=== PATIENT | female | born 1980 | race Caucasian/White ===

== ENCOUNTER 2016-09-14 08:12 | Day surgery (SDC) | payer BC ==
[~2016-09-14 08:12] MED LIST: Acetaminophen TAB* 325 MG PO PRN; Buffered Lidocaine 0.9% SYRIN* 5 ML/SYR SYRINGE INTRADERM ONE
[2016-09-14] MEDS ORDERED: Midazolam* 1 MG/ML 2 ML VIAL (2 MG) ONE ×2 (09:25→09:36)
[2016-09-14 09:57] VITALS: BP 105/56
[2016-09-14] MEDS ORDERED: Buffered Lidocaine 0.9% SYRIN* 5 ML/SYR SYRINGE ONE (14:50)
[2016-09-14] MEDS ORDERED: Lidocaine 1% MPF* 2 ML VIAL ONE (14:50)
[2016-09-14] MEDS ORDERED: Povidone Iodine 5% OPTH* 30 ML BTL ONE (14:50)
[2016-09-14] MEDS ORDERED: Proparacaine 0.5% OPHTH.SOL* 15 ML BTL ONE (14:50)
[2016-09-14] MEDS ORDERED: Flurbiprofen 0.03% OPTH.SOL* 2.5 ML BTL ONE (14:50)
[2016-09-14] MEDS ORDERED: Phenylephrine 2.5% OPTH.SOL* 2 ML BTL ONE (14:50)
[2016-09-14] MEDS ORDERED: acetaZOLAMIDE TAB* 250 MG ONE (14:50)
[2016-09-14] MEDS ORDERED: Lidocaine 2% EPI 1:200000 MPF* 20 ML VIAL ONE (14:50)
[2016-09-14] MEDS ORDERED: Neomycin/Polymy/Dex OPTH.SUSP* MAXITROL 0.1% 5 ML ONE (14:50)
[2016-09-14] MEDS ORDERED: Cyclopentolate 1% OPTH.SOL* 2 ML BTL ONE (14:50)
--- NOTE | 2016-09-15 04:33 | OP ---
DATE OF OPERATION: 09/14/16 [facility] DATE OF : 76 SURGEON: Tyler Carter MD PREOPERATIVE DIAGNOSIS: Cataract, right eye. POSTOPERATIVE DIAGNOSIS: Cataract, right eye. OPERATIVE PROCEDURE: Phacoemulsification, right eye with IOL. DESCRIPTION OF PROCEDURE: The patient was brought to the operating room after being given 1/2% Alcaine with epinephrine drops in the preoperative area. The eye was prepped and draped in the usual sterile fashion. Sterile drape and eyelid speculum were placed. Again, topical 1/2% Alcaine with epinephrine was given. A paracentesis incision was made at the 9 o'clock position with the No.75 blade. Clear cornea incision 2.2 x 2.2-mm was created at the 12 o'clock position starting at the anterior limbus using the 2.2-mm keratome. The anterior chamber was irrigated with 0.4 mL of 1% non-preservative intracameral lidocaine and filled with DisCoVisc. A capsulorrhexis was completed using the cystotome and the Utrata forceps. Hydrodissection was performed with balanced salt solution. The lens nucleus was removed with the Phacoemulsification handpiece without incident. Cortex was removed with the irrigation-aspiration handpiece. The capsular bag was re-inflated using DisCoVisc and an [id number] implant was inserted with the shooter. The irrigation-aspiration handpiece was used to remove all residual DisCoVisc. The eye was refilled with balanced salt solution and the wound checked and found to be watertight. Topical Maxitrol drops were given. [id number]/[facility] #: [id number] MTDMaria Del Carmen
== END 2016-09-14 10:04 | disposition home or self-care (01) ==
LOC: OREAST 08:12
PROVIDERS: ATTEND Specialist
DX: H25.811 Combined forms of age-related cataract, right eye (principal); G43.909 Migraine, unspecified, not intractable, without status migrainosus; Z88.5 Allergy status to narcotic agent
CPT/HCPCS: A9270-GY; J2250; V2632

== ENCOUNTER 2017-03-28 08:23 | Emergency (ER) | payer SELFPAY ==
[2017-03-28] MEDS ORDERED: Ketorolac INJ* 60 MG/2 ML VIAL IM ONE (08:41)
--- NOTE | 2017-03-28 09:30 | RAD ---
INDICATION: Left shoulder pain COMPARISON: August 11, 2003 TECHNIQUE: AP, lateral, and oblique views were obtained. FINDINGS: The bony structures, joint spaces, and soft tissues are normal for age. IMPRESSION: NEGATIVE EXAMINATION.
--- NOTE | 2017-03-28 09:32 | RAD ---
INDICATION: Right hip pain COMPARISON: None TECHNIQUE: An AP view of the pelvis and AP views of the hip in neutral and abducted position were obtained FINDINGS: Bones: There are no acute bony findings. Joint spaces: The hips articulate normally. The joint spaces are preserved. SI joints/symphysis: The SI joints and symphysis are intact. Other: There is tubal ligation. There is an IUD. IMPRESSION: NO ACUTE BONY FINDINGS.
[2017-03-28 10:24] VITALS: BP 99/73
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
== END 2017-03-28 10:24 | disposition home or self-care (01) ==
LOC: ED 08:23
DX: M25.512 Pain in left shoulder (principal); M25.551 Pain in right hip; V48.5XXA Car driver injured in noncollision transport accident in traffic accident, initial encounter; Y92.411 Interstate highway as the place of occurrence of the external cause; Z87.891 Personal history of nicotine dependence; Z88.5 Allergy status to narcotic agent
CPT/HCPCS: 96372; 99282; J1885

== ENCOUNTER 2017-12-12 22:17 | Emergency (ER) | payer BC ==
[2017-12-13] MEDS ORDERED: traMADol TAB* 50 MG PO ONE (01:34)
--- NOTE | 2017-12-13 02:44 | RAD ---
EXAM: CT Pelvis Without Intravenous Contrast EXAM DATE/TIME: 12/13/2017 1:57 AM CLINICAL HISTORY: 37 years old, female; Injury or trauma; Fall; Late effect from previous injury; Swelling; Does not apply; Pelvic region; Additional info: Fall on tailbone TECHNIQUE: Axial computed tomography images of the pelvis without intravenous contrast. Examination was focused on the musculoskeletal structures. All CT scans at this facility use at least one of these dose optimization techniques: automated exposure control; mA and/or kV adjustment per patient size (includes targeted exams where dose is matched to clinical indication); or iterative reconstruction. Coronal and sagittal reformatted images were created and reviewed. COMPARISON: OT HIP RT HIP RIGHT 2 VIEWS AND PELVIS 03/28/2017 9:04 AM FINDINGS: Tubes, catheters and devices: An intrauterine device is seen in the expected location. Reproductive: The patient is status post tubal ligation procedure. Bones/joints: Degenerative disc disease is demonstrated at L5-S1. There is alteration in the contour of the coccyx suggesting old fracture deformity. There is no acute fracture. There is no dislocation. There is no lytic or blastic bone lesion. Soft tissues: Soft tissue density is seen in the subcutaneous fat posterior to the lower lumbar spine and upper sacrum. The superior margin of this soft tissue abnormality is not included in study. It has an AP measurement of 3.1 cm. It has a transverse measurement of approximately 20 cm. IMPRESSION: No acute fracture. Soft tissue changes in the subcutaneous fat posterior to the lower lumbar spine and upper sacrum could represent hematoma. To contact [facility] with a general question: [facility] - [phone] For direct physician to physician contact: Physician Hotline - [phone] [facility] ([facility] Facility ID #[id number])
--- NOTE | 2017-12-13 03:09 | ED ---
Complex/Multi-Sys Presentation - History Of Current Complaint Chief Complaint: EDBackInjuryPain Time Seen by Provider: 12/13/17 01:27 - Allergies/Home Medications Allergies/Adverse Reactions: Allergies Allergy/AdvReac Type Severity Reaction Status Date / Time Adhesive Tape Allergy Hives Verified 12/12/17 22:28 lactose Allergy GI Upset Verified 12/12/17 22:28 oxycodone Allergy Hives Verified 12/12/17 22:28 PMH/Surg Hx/FS Hx/Imm Hx Endocrine/Hematology History: Denies: Hx Diabetes, Hx Thyroid Disease, Hx Anemia Cardiovascular History: Denies: Hx Hypertension, Hx Pacemaker/ICD Respiratory History: Denies: Hx Asthma, Hx Chronic Obstructive Pulmonary Disease (COPD) GI History: Denies: Hx Jaundice, Hx Ulcer Sensory History: Reports: Hx Cataracts Denies: Hx Contacts or Glasses, Hx Hearing Aid Opthamlomology History: Reports: Hx Cataracts Denies: Hx Contacts or Glasses Neurological History: Reports: Hx Migraine - 2-3 TIMES PER MONTH Psychiatric History: Reports: Hx Anxiety - VERY ANXIOUS ABOUT SURGERY Denies: Hx Panic Disorder - Surgical History Surgery Procedure, Year, and Place: X3. 2013 Tubal ligation Hx Anesthesia Reactions: Yes - nausea, vomiting, low blood pressure Infectious Disease History: No Infectious Disease History: Denies: Hx Clostridium Difficile, Hx Hepatitis, Hx Human Immunodeficiency Virus (HIV), Hx of Known/Suspected MRSA, Hx Shingles, Hx Tuberculosis, Hx Known/ Suspected VRE, Hx Known/Suspected VRSA, History Other Infectious Disease, Traveled Outside the [place] in Last 30 Days - Family History Family History: Cancer - Social History Alcohol Use: None Substance Use Type: Reports: None Smoking Status (MU): Former Smoker Type: Cigarettes Amount Used/How Often: 1 PACK PER WEEK X 3-4 YEARS Length of Time of Smoking/Using Tobacco: 2-3 YEARS Have You Smoked in the Last Year: No Review of Systems Negative: Fever Eyes: Negative Cardiovascular: Negative Respiratory: Negative Positive: Other - pain over the buttocks with bruises. All Other Systems Reviewed And Are Negative: Yes Physical Exam Triage Information Reviewed: Yes Vital Signs On Initial Exam: Initial Vitals Temp Pulse Resp BP Pulse Ox 98.5 F 79 16 122/80 100 12/12/17 22:19 12/12/17 22:19 12/12/17 22:19 12/12/17 22:19 12/12/17 22:19 Vital Signs Reviewed: Yes Appearance: Positive: Well-Appearing Skin: Positive: Warm, Dry Head/Face: Positive: Normal Head/Face Inspection Eyes: Positive: Normal, EOMI, ALETHEA ENT: Positive: Normal ENT inspection Dental: Negative: Bleeding, Foreign body Neck: Positive: Supple, Nontender, No Lymphadenopathy Respiratory/Lung Sounds: Positive: Clear to Auscultation, Breath Sounds Present , Decreased Breath Sounds Cardiovascular: Positive: Normal, RRR Abdomen Description: Positive: Nontender, No Organomegaly Bowel Sounds: Positive: Present Musculoskeletal: Positive: Other - Tender fluctuant large ecchymotic area over the buttocks, right side more than left side. Neurological: Positive: Normal Psychiatric: Positive: Normal Diagnostics - Vital Signs Vital Signs Temp Pulse Resp BP Pulse Ox 12/13/17 00:24 97.5 F 67 16 137/63 100 12/12/17 22:19 98.5 F 79 16 122/80 100 - Laboratory Lab Statement: Any lab studies that have been ordered have been reviewed, and results considered in the medical decision making process. Complex Multi-Symp Course/Dx - Diagnoses Provider Diagnoses: Traumatic hematoma of buttock Discharge - Sign-Out/Discharge Documenting (check all that apply): Patient Departure - Discharge Plan Condition: Stable Disposition: HOME Prescriptions: traMADol TAB* [Ultram*] 50 mg PO Q6HR PRN #20 tab MDD 4 PRN Reason: Pain Patient Education Materials: Hematoma (ED) Referrals: Gelacio Garcia MD [Primary Care Provider] - Additional Instructions: RETURN TO THE EMERGENCY DEPARTMENT FOR CHANGING OR WORSENING SYMPTOMS. FOLLOW UP WITH PCP IN 1-2 DAYS. - Billing Disposition and Condition Condition: STABLE Disposition: Home - Attestation Statements Document Initiated by Scribe: Yes Documenting Scribe: Cj Rizvi Provider For Whom Scribe is Documenting (Include Credential): Gallo Mayen Scriblavelle Attestation: Dmitri Ortiz Abhishek, scribed for Gallo Mayen on 12/15/17 at 0357. Scribe Documentation Reviewed: Yes Provider Attestation: The documentation as recorded by the Dmitri martinez Abhishek accurately reflects the service I personally performed and the decisions made by Faheem khanna Abdul
[2017-12-13 03:37] VITALS: BP 127/76
== END 2017-12-13 03:36 | disposition home or self-care (01) ==
LOC: ED 22:17
DX: S30.0XXA Contusion of lower back and pelvis, initial encounter (principal); W19.XXXA Unspecified fall, initial encounter; Y92.9 Unspecified place or not applicable
CPT/HCPCS: 72192; 99282; A9270-GY